=== PATIENT | male | born 1945 | race Caucasian/White ===

== ENCOUNTER 2024-07-15 00:57 | Inpatient (IN) | payer MEDICARE, BC ==
[~2024-07-15] VITALS: Ht 172.7 cm; Wt 79.8 kg
[2024-07-15 01:10] VITALS: BP 128/98; TEMP 98.1; O2SAT 98
[2024-07-15] MEDS ORDERED: MAGNESIUM HYDROXIDE 30 ML UDC PO PRN (02:00)
[2024-07-15] MEDS ORDERED: MAG HYDROX/AL HYDROX/SIMETH 30 ML UDC PO PRN (02:00)
[2024-07-15] MEDS ORDERED: ACETAMINOPHEN 325 MG TABLET PO PRN (02:00)
[2024-07-15] MEDS ORDERED: Z GUARD REMEDY 4 OZ OINT TP PRN (02:00)
[2024-07-15] MEDS ORDERED: ONDANSETRON HCL/PF 4 MG/2 ML VIAL IVP PRN (02:00)
[2024-07-15 04:00] VITALS: BP 153/82; TEMP 97.8; O2SAT 99
[2024-07-15 07:30] VITALS: BP 147/67; TEMP 98.1; O2SAT 100
[2024-07-15] MEDS: PANTOPRAZOLE 40 MG VIAL IV SCH (08:59)
[2024-07-15] MEDS ORDERED: HYDR-3980 PO (10:18)
[2024-07-15] MEDS ORDERED: QUET50TA PO (10:18)
[2024-07-15] MEDS ORDERED: BUDE0.253 IH (10:18)
[2024-07-15] MEDS ORDERED: LEVO25TA7 PO (10:18)
[2024-07-15] MEDS ORDERED: PRED10TA PO (10:18)
[2024-07-15] MEDS ORDERED: HYDR-500 PO (10:18)
[2024-07-15] MEDS ORDERED: OXYC15TA82 PO (10:18)
[2024-07-15] MEDS ORDERED: ALBU18HF2 IH (10:18)
[2024-07-15] MEDS ORDERED: BUTA-284 PO (11:33)
[2024-07-15] MEDS ORDERED: NALO4SPR NS (11:33)
[2024-07-15] MEDS ORDERED: CHEMO INFUSION IV (11:45)
[2024-07-15 15:05] LABS: BASOPHILS % (AUTO) 0.1 % (0.0-2.0); EOSINOPHILS % (AUTO) 1.5 % (0.0-6.0); HEMATOCRIT 27 % (39-51); HEMOGLOBIN 9.3 g/dL (13.5-17.5); LYMPHOCYTES # (AUTO) 0.5 K/uL (0.8-4.8); LYMPHOCYTES % (AUTO) 50.5 % (20.0-44.0); MEAN CORPUSCULAR HEMOGLOBIN 32 PG (26.0-33.0); MEAN CORPUSCULAR HGB CONC 35 g/dl (31.0-36.0); MEAN CORPUSCULAR VOLUME 91 fL (80-96); MONOCYTES # (AUTO) 0.2 K/uL (0.1-1.30); NEUTROPHILS # (AUTO) 0.3 K/uL (1.8-8.9); NEUTROPHILS % (AUTO) 25.9 % (43.0-81.0); RED BLOOD CELL COUNT(AUTO) 2.92 MIL/uL (4.5-6.0); RED CELL DISTRIBUTION WIDTH 14.1 % (11.5-15.0)
[2024-07-15 15:22] LABS: PLATELET COUNT (AUTO) 48 K/uL (150-450)
[2024-07-15 15:26] LABS: CALCIUM, SERUM 8.7 mg/dL (8.5-10.1); CREATININE 0.7 mg/dL (0.6-1.3); POTASSIUM 3.7 mmol/L (3.5-5.1)
[2024-07-15 16:00] VITALS: BP 151/69; TEMP 97.7; O2SAT 99
[2024-07-15 17:54] LABS: BASOPHILS % (MANUAL) 0 % (0.0-2.0); EOSINOPHILS % (MANUAL) 1 % (0-4); LYMPHOCYTES % (MANUAL) 46 % (16-48); MONOCYTES % (MANUAL) 19 % (0-11.0); NEUTROPHILS % (MANUAL) 34 (42-76); PLATELET ESTIMATE DECREASED
[2024-07-15] MEDS: IV NS 0.9% 1,000 ML IV PRN (18:37)
[2024-07-15 20:00] VITALS: BP 147/71; TEMP 98.1; O2SAT 100
[2024-07-16] VITALS: BP 117/83; TEMP 98.1; O2SAT 98
[2024-07-16] MEDS: ZOLPIDEM TARTRATE 5 MG TABLET PO PRN (02:06)
[2024-07-16 04:00] VITALS: BP 161/76; TEMP 98.4; O2SAT 95
[2024-07-16 07:00] VITALS: BP 144/89; TEMP 97.7; O2SAT 95
[2024-07-16] MEDS: PANTOPRAZOLE 40 MG TABLET.DR PO SCH (08:17)
[2024-07-16 11:15] LABS: CALCIUM, SERUM 8.9 mg/dL (8.5-10.1); CREATININE 0.6 mg/dL (0.6-1.3); POTASSIUM 3.4 mmol/L (3.5-5.1)
[2024-07-16 11:17] LABS: BASOPHILS % (AUTO) 0.5 % (0.0-2.0); EOSINOPHILS % (AUTO) 1.3 % (0.0-6.0); HEMATOCRIT 31 % (39-51); HEMOGLOBIN 10.8 g/dL (13.5-17.5); LYMPHOCYTES # (AUTO) 0.5 K/uL (0.8-4.8); LYMPHOCYTES % (AUTO) 56.4 % (20.0-44.0); MEAN CORPUSCULAR HEMOGLOBIN 32 PG (26.0-33.0); MEAN CORPUSCULAR HGB CONC 35 g/dl (31.0-36.0); MEAN CORPUSCULAR VOLUME 91 fL (80-96); MONOCYTES # (AUTO) 0.2 K/uL (0.1-1.30); NEUTROPHILS # (AUTO) 0.2 K/uL (1.8-8.9); NEUTROPHILS % (AUTO) 22.8 % (43.0-81.0); PLATELET COUNT (AUTO) 79 K/uL (150-450); RED CELL DISTRIBUTION WIDTH 14.2 % (11.5-15.0)
[2024-07-16 11:22] LABS: BILIRUBIN,TOTAL 0.7 mg/dL (0.2-1.0); MAGNESIUM 1.7 mg/dL (1.8-2.4); PHOSPHORUS 3.2 mg/dL (2.5-4.9); TOTAL PROTEIN, SERUM 6.5 g/dL (6.4-8.2); WHITE BLOOD COUNT (AUTO) 0.8 K/uL (4.3-11.0)
[2024-07-16 16:00] VITALS: BP 152/81; O2SAT 95
[2024-07-16 20:00] VITALS: BP 153/71; TEMP 98.1; O2SAT 97
[2024-07-17] VITALS: BP 125/71; TEMP 98.4; O2SAT 96
[2024-07-17 04:00] VITALS: BP 132/78; TEMP 98.2; O2SAT 96
[2024-07-17 08:00] VITALS: BP 121/71; TEMP 99; O2SAT 96
[2024-07-17 10:01] LABS: BASOPHILS % (AUTO) 0.6 % (0.0-2.0); EOSINOPHILS % (AUTO) 0.4 % (0.0-6.0); HEMATOCRIT 29 % (39-51); HEMOGLOBIN 9.9 g/dL (13.5-17.5); LYMPHOCYTES # (AUTO) 0.5 K/uL (0.8-4.8); MEAN CORPUSCULAR HEMOGLOBIN 32 PG (26.0-33.0); MEAN CORPUSCULAR HGB CONC 35 g/dl (31.0-36.0); MEAN CORPUSCULAR VOLUME 92 fL (80-96); MONOCYTES # (AUTO) 0.4 K/uL (0.1-1.30); MONOCYTES % (AUTO) 28.8 % (2.0-12.0); NEUTROPHILS # (AUTO) 0.4 K/uL (1.8-8.9); NEUTROPHILS % (AUTO) 31.2 % (43.0-81.0); PLATELET COUNT (AUTO) 98 K/uL (150-450); RED BLOOD CELL COUNT(AUTO) 3.14 MIL/uL (4.5-6.0); RED CELL DISTRIBUTION WIDTH 14.5 % (11.5-15.0)
[2024-07-17 10:16] LABS: ALBUMIN 2.7 g/dL (3.4-5.0); BILIRUBIN,TOTAL 0.3 mg/dL (0.2-1.0); CREATININE 0.8 mg/dL (0.6-1.3); POTASSIUM 3.6 mmol/L (3.5-5.1); TOTAL PROTEIN, SERUM 6.2 g/dL (6.4-8.2)
[2024-07-17 10:17] LABS: WHITE BLOOD COUNT (AUTO) 1.3 K/uL (4.3-11.0)
[2024-07-17 10:21] LABS: CALCIUM, SERUM 8.9 mg/dL (8.5-10.1)
[2024-07-17 12:18] LABS: LYMPHOCYTES % (MANUAL) 46 % (16-48); MONOCYTES % (MANUAL) 15 % (0-11.0); MYELOCYTES % 1 % (0-0)
[2024-07-17 12:19] LABS: NEUTROPHILS % (MANUAL) 38 (42-76); PLATELET ESTIMATE DECREASED
[2024-07-17 12:20] LABS: ANISOCYTOSIS 1+
[2024-07-17 16:00] VITALS: BP 119/70; TEMP 98.6; O2SAT 97
== END 2024-07-17 17:15 | disposition home or self-care (01) | DRG 640 ==
LOC: MED 01:00 → TELE 01:52 → MED 07-17 12:38
PROVIDERS: ATTEND Nurse Practitioner Acute Care
DX: E86.0 Dehydration (principal); I21.A1 Myocardial infarction type 2; C34.90 Malignant neoplasm of unspecified part of unspecified bronchus or lung; D61.818 Other pancytopenia; N17.9 Acute kidney failure, unspecified; W19.XXXA Unspecified fall, initial encounter; Y93.9 Activity, unspecified; R29.6 Repeated falls; E87.5 Hyperkalemia; Z88.0 Allergy status to penicillin; Z88.2 Allergy status to sulfonamides; Z79.60 Long term (current) use of unspecified immunomodulators and immunosuppressants; R74.01 Elevation of levels of liver transaminase levels; D72.819 Decreased white blood cell count, unspecified; S05.12XA Contusion of eyeball and orbital tissues, left eye, initial encounter; Y92.009 Unspecified place in unspecified non-institutional (private) residence as the place of occurrence of the external cause
CPT/HCPCS: 36415; 71045-TC; 80048-TC; 80053-TC; 82140-TC; 83735-TC; 84100-TC; 84484-TC; 85025-TC; 92526; 92611-TC; 93307-TC; 97110-TC; 97116-TC; 97530-TC; A4223; G0378; J2470; J7030